=== PATIENT | male | born 1975 | race Caucasian/White ===

== ENCOUNTER 2016-06-16 19:01 | Emergency (ER) | payer OTHER ==
[~2016-06-16] VITALS: Ht 182.9 cm; Wt 91.9 kg
[~2016-06-16 19:01] MED LIST: HYDR-5688 PO; IMDSR30 PO; LSX20 PO
[2016-06-16 19:05] VITALS: TEMP 36.4; Ht 182.9 cm; Wt 91.9 kg
[2016-06-16] MEDS ORDERED: MoRPHine SULFATE 10 MG/ML CARP/VIAL IM STA (19:54)
--- NOTE | 2016-06-16 20:45 | DIAGNOSTIC IMAGING REPORT ---
LUMBAR SPINE 5 VIEWS HISTORY: Low back pain COMPARISON: Lumbar spine 07/09/2010. FINDINGS: There is no fracture. No subluxation. Mild disc space narrowing at L1-L2 and L5-S1 are not individually changed. There are small endplate osteophytes seen throughout the lumbar spine. Mild facet degenerative changes within the lower lumbar spine. There is a 7 mm calcification overlapping the left kidney. This could be due to a renal calculus or vascular calcification. IMPRESSION: No fracture or subluxation within the lumbar spine. Mild degenerative changes as described above Electronically signed by: David Zamora M.D. 06/16/2016 8:44 PM Dictated Date/Time: 06/16/2016 8:40 PM
[2016-06-16] MEDS ORDERED: HYDR-5688 PO (20:57)
[2016-06-16] MEDS ORDERED: NORCO 5/325MG HOME PACK PO STA (21:00)
--- NOTE | 2016-06-16 21:00 | EMERGENCY ROOM VISIT NOTE ---
ED Visit Note First contact with patient: 19:45 CHIEF COMPLAINT: Back pain going down the leg HISTORY OF PRESENT ILLNESS: This 41-year-old male patient presents to the emergency department via private vehicle who is not driving complaining of pain in the low back which began Monday. The pain was gradual in onset, is now constant and worse with movement. The patient notes the pain as radiating and worsening and a 9/10. The patient has taken Tylenol and ibuprofen relief of the pain. The patient denies any loss of control of their bowel or bladder functions. There has been no leg numbness or weakness, and no change in sensation. No nausea or vomiting or abdominal pain. No chest pain or shortness of breath. The patient has no had prior back injuries. No dysuria or increased urinary frequency. He denies any falls or trauma to the area. He notes that this pain is in the same location as his previous chronic back pain it is just worse. REVIEW OF SYSTEMS: A review of systems was performed with positives and pertinent negatives listed in the history of present illness. All other systems were reviewed and are negative. ALLERGIES: No known allergies MEDICATIONS: As noted below PMH: Diabetes, heart disease, high blood pressure, cancer, lung disease, gallbladder disease, kidney disease or stones, seizures". SOCIAL HISTORY: Patient lives with friends and denies alcohol or tobacco use. PHYSICAL EXAM: VITALS: Vitals are noted on the nurse's note and reviewed by myself. Vital signs stable. He does have elevated blood pressure of 155/105 and is tachycardic but notes that this blood pressure is better than his typical blood pressure. GENERAL: 41-year-old male, in no acute distress, nondiaphoretic, well-developed well-nourished. SKIN: The skin was without rashes, erythema, edema, or bruising. Capillary refill less than 2 seconds. NECK: Supple without nuchal rigidity. No cervical spine tenderness. No paraspinous muscle tenderness. HEART: Regular rate and rhythm without murmurs gallops or rubs. LUNGS: Clear to auscultation bilaterally without wheezes, rales or rhonchi. ABDOMEN: Positive bowel sounds x 4. Normal tympanic percussion. Soft, nontender, without masses or organomegaly. MUSCULOSKELETAL: No muscle atrophy, erythema, or edema noted of the back. There is noted tenderness over the lumbar spinous processes region as well as the paraspinous muscle trouble lumbar spine radiating into the legs. There is positive tenderness over the paraspinous muscles of the lumbar spine. There is no tenderness over the thoracic spine and paraspinous muscles. There are no muscle spasms present. The patient is ambulatory without difficulty. Positive straight leg raise test on the left. NEURO: Patient was alert and oriented to person place and time. Normal sensation to light and sharp touch. Deep tendon reflexes 2+ in the lower extremities. Vascularly intact in lower extremities. Strength 5/5 and equal in the bilateral lower extremities. IMAGING: LUMBAR SPINE 5 VIEWS HISTORY: Low back pain COMPARISON: Lumbar spine 07/09/2010. FINDINGS: There is no fracture. No subluxation. Mild disc space narrowing at L1-L2 and L5-S1 are not individually changed. There are small endplate osteophytes seen throughout the lumbar spine. Mild facet degenerative changes within the lower lumbar spine. There is a 7 mm calcification overlapping the left kidney. This could be due to a renal calculus or vascular calcification. IMPRESSION: No fracture or subluxation within the lumbar spine. Mild degenerative changes as described above Electronically signed by: David Zamora M.D. 06/16/2016 8:44 PM Dictated Date/Time: 06/16/2016 8:40 PM EMERGENCY DEPARTMENT COURSE: Patient was seen and evaluated as above. After obtaining a thorough history and physical examination it was evident he was experiencing an exacerbation of his chronic back pain. I did discuss with him treatment options and it was decided to obtain radiographs of the lumbar spine and to medicate him with 10 mg of morphine. I did discuss this with the in- house pharmacist to ensure that morphine would be okay with the Plavix. He was given 10 mg of morphine IM with good relief of his pain which rates as a 4/10. Radiographs were obtained and reveal degenerative changes with a small calcific region the left kidney. Patient was informed upon this. His vital signs were stable throughout his stay this back pain was consistent with his previous chronic back pain this was just an acute exacerbation. I do not suspect any emergent or surgical nature to his pain at this time. No evidence of cauda equina syndrome. He'll be placed upon Ashton with a small prescription sent home in a home pack for this evening as his pharmacy is closed. He was given the number for 3d specialist in informed to call them to follow up first thing tomorrow. He was educated upon plan of care, had questions answered prior to discharge and was discharged home in good condition. In the treatment of this patient controlled medication was utilized and therefore the [facility], Prescription Drug Monitoring Program website was utilized to look up this patient. No concerns were identified that would prohibit or alter my treatment decision. In evaluation treatment this patient following differential diagnoses were entertained: Acute exacerbation of chronic low back pain, cauda equina syndrome , AAA, trauma, among others. Problem List Medical Problems: (1) AC MYOCARDIAL INFARCT,SUBENDO INFARCT,INITIAL EPIS Status: Resolved (2) Acute bronchitis Status: Resolved (3) Benign hypertension Status: Chronic (4) CORONARY ATHEROSCLEROSIS OF [place] CORONARY VESSEL Status: Chronic (5) Diabetes mellitus Status: Chronic (6) Dyspnea Status: Resolved (7) Hyperlipidemia Status: Chronic (8) Non sustained V tach Status: Resolved (9) Non-ST elevated myocardial infarction Status: Resolved (10) Percutaneous transluminal coronary angioplasty Status: Resolved Surgical Problems: (1) History of cardiac cath Status: Resolved (2) History of heart artery stent Status: Resolved (3) Placement of stent in coronary artery Status: Resolved Current/Historical Medications Scheduled Aspirin (Aspirin Ec), 81 MG PO DAILY Atorvastatin (Lipitor), 80 MG PO DAILY Carvedilol (Coreg), 12.5 MG PO BID Clopidogrel (Plavix), 75 MG PO DAILY Furosemide (Furosemide), 20 MG PO QAM Isosorbide Mononitrate (Isosorbide Mononitrate ER), 30 MG PO QAM Lisinopril (Zestril), 5 MG PO DAILY Nitroglycerin (Nitrostat), 0.4 MG UT PRN Pantoprazole (Protonix), 40 MG PO BID Scheduled PRN Hydrocodone/Acetaminophen 5MG/325MG ([place] 5MG/325MG), 1 TABLET PO Q6 PRN for Pain Allergies Coded Allergies: No Known Allergies (Verified , 06/16/16) Vital Signs Date Time Temp Pulse Resp B/P Pulse Ox O2 Delivery O2 Flow Rate FiO2 06/16/16 21:23 80 154/92 98 06/16/16 19:05 36.4 108 18 155/105 96 Room Air Medications Administered Medications (Trade) Dose Ordered Sig/Alice Route Start Time Stop Time Status Last Admin Dose Admin Morphine Sulfate (MoRPHine SULFATE INJ) 10 mg NOW STAT IM 06/16/16 19:54 06/16/16 20:04 DC 06/16/16 20:09 10 MG Acetaminophen/ Hydrocodone Bitart ([place] 5/325mg Home Pack) 1 homepack UD STAT PO 06/16/16 21:00 06/16/16 21:01 DC 06/16/16 21:04 1 HOMEPACK Departure Information Impression Primary Impression: Low back pain Dispostion Home / Self-Care Condition GOOD Prescriptions Hydrocodone/Acetaminophen 5MG/325MG ([place] 5MG/325MG) Tab 1 TABLET PO Q6 Y for Pain, #10 TAB For Initial Treatment Prov: Cy Moody PA-C 06/16/16 Referrals Chinmay Brown, D.ONarendra (PCP) Patient Instructions My [facility] Additional Instructions You have been treated in the Emergency Department for Back Pain. You have received pain medicine in the emergency department which impairs your ability to operate a vehicle. It is illegal for you to drive after receiving these medicines. You have been prescribed Ashton to be used for pain control. This is a narcotic medication. You cannot drive or consume alcohol while on this medicine. This medicine should only be used for pain that cannot be controlled with over-the- counter pain medicines. DO NOT TAKE TYLENOL WITH THIS IT ALREADY HAS TYLENOL IN IT!!!!!! If this is an acute injury, ice can be applied to the area of pain for the first 3 days to help decrease pain and inflammation. After the first 3 days, a heating pad can be used over the area for continued soothing relief. You should schedule a follow-up appointment in 2-3 days with your Primary Care Provider for further evaluation and treatment of your back pain. You have been given the number for an orthopedic 3d specialist. Please call the number first thing tomorrow morning to schedule follow-up for your back pain. (Dr. Wang) Return to the Emergency Department if your current symptoms worsen despite treatment course outlined above, or if you develop any of the following symptoms : intractable pain despite aforementioned treatment course, loss of control of your bowel or bladder, numbness or tingling in your groin, or development of a fever... Please return to the emergency department with any new/concerning symptoms from your standpoint. Problem Qualifiers Primary Impression: Low back pain Chronicity: chronic Back pain laterality: bilateral
[2016-06-16 21:23] VITALS: BP 154/92; PULSE 80; O2SAT 98
[2016-06-23] MEDS ORDERED: ASPI81TA28 PO (03:13)
[2016-06-23] MEDS ORDERED: ATOR-26 PO (03:13)
[2016-06-23] MEDS ORDERED: CARV12.52 PO (03:15)
[2016-06-23] MEDS ORDERED: CLOP1TAB15 PO (03:16)
[2016-06-23] MEDS ORDERED: LISI-729 PO (03:16)
[2016-06-23] MEDS ORDERED: PANT40TA PO (03:18)
[2016-06-23] MEDS ORDERED: NTRGSL/4 UT (03:19)
[2016-06-25] MEDS ORDERED: LNX125 PO (14:45)
[2016-06-25] MEDS ORDERED: CRG25 PO (14:45)
[2016-06-25] MEDS ORDERED: ELQ25 PO (14:45)
== END 2016-06-16 21:04 | disposition home or self-care (01) ==
LOC: C.EDB 19:05 → C.EDD 21:04
DX: M54.5 Low back pain (principal); E11.9 Type 2 diabetes mellitus without complications; I10 Essential (primary) hypertension; R56.9 Unspecified convulsions; I25.2 Old myocardial infarction; I25.10 Atherosclerotic heart disease of native coronary artery without angina pectoris; E78.5 Hyperlipidemia, unspecified; Z95.5 Presence of coronary angioplasty implant and graft; Z79.82 Long term (current) use of aspirin

== ENCOUNTER 2016-06-23 14:32 | Observation (INO) | payer OTHER ==
[~2016-06-23] VITALS: Ht 182.9 cm; Wt 91.2 kg
[~2016-06-23 14:32] MED LIST changes: +ASPI81TA28 PO; +ATOR-26 PO; +CARV12.52 PO; +CLOP1TAB15 PO; +LISI-729 PO; +NTRGSL/4 UT; +PANT40TA PO
[2016-06-23 15:08] LABS: HEMATOCRIT 43.6 % (42-52); MEAN CELL VOLUME 91.4 fL (80-100); MEAN CORPUSCULAR HEMOGLOBIN 32.1 pg (25-34); MEAN CORPUSCULAR HGB CONC 35.1 g/dl (32-36); MEAN PLATELET VOLUME 10.9 fL (7.4-10.4); PLATELET COUNT 295 K/uL (130-400); RED BLOOD COUNT 4.77 M/uL (4.7-6.1); WHITE BLOOD COUNT 8.94 K/uL (4.8-10.8)
[2016-06-23] MEDS ORDERED: NITROGLYCERIN OINT 2% 1GM PACKET ONE (15:09)
[2016-06-23] MEDS ORDERED: NITROGLYCERIN OINT 2% 1GM PACKET EXT STA (15:09)
[2016-06-23] MEDS ORDERED: ASPIRIN 81 MG CHEW ONE (15:09)
[2016-06-23] MEDS ORDERED: ASPIRIN 81 MG CHEW PO STA (15:09)
[2016-06-23] MEDS ORDERED: ISOS30TA3 PO (15:17)
[2016-06-23] MEDS ORDERED: FURO-85 PO (15:17)
--- NOTE | 2016-06-23 15:21 | EMERGENCY ROOM VISIT NOTE ---
History Report prepared by George: Maxine Gavrin Under the Supervision of: Dr. Td Anne M.D. First contact with patient: 15:01 Chief Complaint: CHEST PAIN Stated Complaint: CP, SOB Nursing Triage Summary: patient with cardiac history with stents placed and past MO with 3 day history of chest pain which has been relieved with NTG SL. came today with increased shortness of breath with the pain in the chest pressure substernal History of Present Illness The patient is a 41 year old male who presents to the Emergency Room with complaints of waxing and waning left sided chest pain that began three days ago. The pain radiates through his back and left arm. He also complains of shortness of breath that worsens with his chest pain. His symptoms are typically the worst at night when he his relaxing. The patient took Nitro SL ADULT SPECIALIST with some relief of his pain. Currently, he has minimal pain. He does complain of some substernal pain that feels similar to the pain he had when he had a CHF flare up. He notes that he was checking his pulse ox at home and it went as low as 79 last night. The patient has a history of MO and has had multiple stents placed in the past. His most recent stent placement was about a year ago. His current symptoms feel similar to how he felt when he had the stents placed. The patient also has a history of CHF. Source of History: patient Onset: 3 days ago Position: chest (left) Timing: waxes/wanes Modifying Factors (Relieving): other (Nitro) Associated Symptoms: + SOB Note: Other symptoms: substernal pain Review of Systems See HPI for pertinent positives & negatives. A total of 10 systems reviewed and were otherwise negative. Past Medical & Surgical Medical Problems: (1) AC MYOCARDIAL INFARCT,SUBENDO INFARCT,INITIAL EPIS (2) ACS (acute coronary syndrome) (3) Acute bronchitis (4) Benign hypertension (5) CHF exacerbation (6) CORONARY ATHEROSCLEROSIS OF [place] CORONARY VESSEL (7) Diabetes mellitus (8) Dyspnea (9) Hyperlipidemia (10) Non sustained V tach (11) Non-ST elevated myocardial infarction (12) Percutaneous transluminal coronary angioplasty Surgical Problems: (1) History of cardiac cath (2) History of heart artery stent (3) Placement of stent in coronary artery Family History Blood clots Cancer Diabetes mellitus Gallbladder disease Heart disease Hypertension Kidney disease Kidney stones Lung disease Social History Smoking Status: Former Smoker Alcohol Use: occasionally Drug Use: none Marital Status: in relationship Housing Status: lives with family Occupation Status: employed Current/Historical Medications Scheduled Aspirin (Aspirin Ec), 81 MG PO DAILY Atorvastatin (Lipitor), 80 MG PO DAILY Carvedilol (Coreg), 12.5 MG PO BID Clopidogrel (Plavix), 75 MG PO DAILY Isosorbide Mononitrate Ext Rel (Imdur Ext Rel), 30 MG PO QAM Lisinopril (Zestril), 5 MG PO DAILY Pantoprazole (Protonix), 40 MG PO DAILY Torsemide (Torsemide), 20 MG PO DAILY Scheduled PRN Nitroglycerin (Nitrostat), 0.4 MG UT UD PRN for Chest Pain Allergies Coded Allergies: No Known Allergies (Verified , 06/16/16) Physical Exam Vital Signs Date Time Temp Pulse Resp B/P Pulse Ox O2 Delivery O2 Flow Rate FiO2 06/23/16 16:55 108 16 144/95 97 06/23/16 16:51 108 16 144/95 97 Room Air 06/23/16 15:50 109 06/23/16 15:05 99 Room Air 06/23/16 14:58 99 Room Air 06/23/16 14:58 107 20 155/97 99 Room Air 06/23/16 14:38 36.3 110 20 157/108 98 Room Air Physical Exam GENERAL: Patient is a healthy-appearing well-nourished 41 year old male HEAD: Normocephalic atraumatic EYES: Ocular movements intact pupils equal and react to light OROPHARYNX mucous membranes are moist no exudates present no erythema or edema present NECK: Supple no nuchal rigidity CHEST: Good equal expansion LUNGS: Clear and equal to auscultation CARDIAC: Normal S1 and S2 ABDOMEN: Soft nontender no guarding BACK: No CVA tenderness EXTREMITIES: No pain upon palpation normal muscle strength in all groups no clubbing cyanosis or edema NEURO: Patient is following commands is answering questions appropriately. Alert and oriented x3 Cranial Nerves 2-12 grossly intact Medical Decision & Procedures ER Provider Diagnostic Interpretation: X-ray results as stated below per interpretation by me and the radiologist: CHEST ONE VIEW PORTABLE CLINICAL HISTORY: CHEST PAIN dyspnea COMPARISON STUDY: 02/27/2016 FINDINGS: The bones soft tissues and hemidiaphragms are normal. The cardiomediastinal silhouette is normal. The lungs are clear. The pulmonary vasculature is normal. Old healed fracture right clavicle IMPRESSION: Negative chest. Electronically signed by: Montez Powell M.D. 06/23/2016 3:29 PM Dictated Date/Time: 06/23/2016 3:29 PM Laboratory Results 06/23/16 14:55 06/23/16 14:55 Test 06/23/16 14:55 06/23/16 15:03 06/23/16 17:11 Red Blood Count 4.77 M/uL (4.7-6.1) Mean Corpuscular Volume 91.4 fL (80-100) Mean Corpuscular Hemoglobin 32.1 pg (25-34) Mean Corpuscular Hemoglobin Concent 35.1 g/dl (32-36) RDW Standard Deviation 44.1 fL (36.4-46.3) RDW Coefficient of Variation 13.5 % (11.5-14.5) Mean Platelet Volume 10.9 fL (7.4-10.4) Prothrombin Time 11.0 SECONDS (9.0-12.0) Prothromb Time International Ratio 1.0 (0.9-1.1) Activated Partial Thromboplast Time 25.3 SECONDS (21.0-31.0) Partial Thromboplastin Ratio 1.0 Anion Gap 7.0 mmol/L (3-11) Est Creatinine Clear Calc Drug Dose 95.1 ml/min Estimated GFR () 94.8 Estimated GFR (Non- 81.8 BUN/Creatinine Ratio 7.5 (10-20) Calcium Level 8.4 mg/dl (8.5-10.1) Magnesium Level 2.0 mg/dl (1.8-2.4) Total Bilirubin 0.3 mg/dl (0.2-1) Aspartate Amino Transf (AST/SGOT) 11 U/L (15-37) Alanine Aminotransferase (ALT/SGPT) 18 U/L (12-78) Alkaline Phosphatase 65 U/L (45-117) Total Creatine Kinase 137 U/L (39-308) Creatine Kinase MB 1.2 ng/ml (0.5-3.6) Creatine Kinase MB Ratio 0.9 (0-3.0) Total Protein 6.9 gm/dl (6.4-8.2) Albumin 3.9 gm/dl (3.4-5.0) Globulin 3.0 gm/dl (2.5-4.0) Albumin/Globulin Ratio 1.3 (0.9-2) Bedside Troponin I 0.030 ng/ml (0-0.045) Labs reviewed by ED physician. Medications Administered Medications (Trade) Dose Ordered Sig/Alice Route Start Time Stop Time Status Last Admin Dose Admin Aspirin (Aspirin Chew) 324 mg STK-MED ONCE .ROUTE 06/23/16 15:09 06/23/16 15:11 DC 06/23/16 15:13 324 MG Nitroglycerin (Nitroglycerin 2% Oint) 1 inch STK-MED ONCE .ROUTE 06/23/16 15:09 06/23/16 15:11 DC 06/23/16 15:09 1 INCH Miscellaneous Medication (Gi Cocktail) 24 ml NOW STAT PO 06/23/16 15:22 06/23/16 15:23 DC 06/23/16 15:22 24 ML Famotidine (Pepcid Tab) 20 mg NOW STAT PO 06/23/16 15:22 06/23/16 15:23 DC 06/23/16 15:52 20 MG Sucralfate (Carafate Tab) 1 gm NOW STAT PO 06/23/16 15:22 06/23/16 15:23 DC 06/23/16 15:52 1 GM Al Hydroxide/Mg Hydroxide (Maalox Susp) 30 ml STK-MED ONCE .ROUTE 06/23/16 15:49 06/23/16 15:51 DC 06/23/16 15:53 30 ML Lidocaine HCl (Viscous Lidocaine 2% Soln) 20 ml STK-MED ONCE .ROUTE 06/23/16 15:49 06/23/16 15:51 DC 06/23/16 15:53 20 ML Morphine Sulfate (MoRPHine SULFATE INJ) 2 mg NOW STAT IV 06/23/16 17:07 06/23/16 17:10 DC 06/23/16 17:12 2 MG ECG Indication: chest pain Rate (beats per minute): 114 Rhythm: sinus tachycardia Findings: RBBB, no acute ischemic change, no ectopy ED Course 1512: Past medical records reviewed. The patient was evaluated in room B4. A complete history and physical examination was performed. Ordered nitroglycerin 1 inch EXT, Aspirin 324 mg PO 1522: Ordered Sucralfate 1 gm PO, Famotidine 20 mg PO, GI Cocktail 24 ml PO. 1554: I discussed the case with [facility]. 1600: Upon reexamination the patient is resting comfortably. I discussed results and treatment plan with the patient. He verbalizes agreement and understanding. Medical Decision Differential diagnosis: Etiologies such as cardiac ischemia, aortic dissection, pulmonary embolism, pneumonia, pneumothorax, musculoskeletal, infections, pericarditis, myocarditis , esophageal rupture, gastrointestinal, as well as others were entertained. This is a 41-year-old male who presents emergency department complaining of chest pain. The patient does have a significant history of cardiac stents. I will also note that his troponin was not quite 0. The patient's pain was relieved by nitroglycerin over the past 3 days however keeps coming back with increasing frequency. For this reason he was given nitro paste in the emergency department along with 324 mg of aspirin. I did discuss the patient with the hospitalist service who agreed to admit the patient. Patient was in agreement with the treatment plan. Consults Time Called: 1550 Consulting Physician: [facility] Returned Call: 1554 I discussed the case with her. The patient will be evaluated for further management. Impression Primary Impression: Unstable angina Scribe Attestation The scribe's documentation has been prepared under my direction and personally reviewed by me in its entirety. I confirm that the note above accurately reflects all work, treatment, procedures, and medical decision making performed by me. Departure Information Dispostion Being Evaluated By Hospitalist Referrals Chinmay Brown, ChristianONarendra (PCP) Patient Instructions My [facility]
[2016-06-23] MEDS ORDERED: SUCRALFATE 1 GM TAB PO STA (15:22)
[2016-06-23] MEDS ORDERED: FAMOTIDINE 20 MG TAB PO STA (15:22)
[2016-06-23] MEDS ORDERED: GI COCKTAIL PO STA (15:22)
[2016-06-23 15:26] LABS: BUN/CREATININE RATIO 7.5 (10-20); CALCIUM 8.4 mg/dl (8.5-10.1); CREATININE 1.1 mg/dl (0.60-1.40); POTASSIUM 3.5 mmol/L (3.5-5.1)
--- NOTE | 2016-06-23 15:30 | DIAGNOSTIC IMAGING REPORT ---
CHEST ONE VIEW PORTABLE CLINICAL HISTORY: CHEST PAIN dyspnea COMPARISON STUDY: 02/27/2016 FINDINGS: The bones soft tissues and hemidiaphragms are normal. The cardiomediastinal silhouette is normal. The lungs are clear. The pulmonary vasculature is normal. Old healed fracture right clavicle IMPRESSION: Negative chest. Electronically signed by: Montez Powell M.D. 06/23/2016 3:29 PM Dictated Date/Time: 06/23/2016 3:29 PM
[2016-06-23 15:31] LABS: ALB/GLOB RATIO 1.3 (0.9-2); CKMB/CK RATIO 0.9 (0-3.0)
[2016-06-23] MEDS ORDERED: ALUMINUM/MAGNESIUM SUSP 30 ML UDC ONE (15:49)
[2016-06-23] MEDS ORDERED: LIDOCAINE HCL 2% VISC SOLN 20 ML UDC ONE (15:49)
[2016-06-23] MEDS ORDERED: ONDANSETRON INJ 2 MG/ML 2 ML VIAL IV PRN (16:15)
[2016-06-23] MEDS ORDERED: NITROGLYCERIN 0.4 MG SL PER TAB CHARGE SL PRN (16:15)
[2016-06-23] MEDS ORDERED: IV FLUIDS COMPLETED PRN (16:30)
[2016-06-23] MEDS ORDERED: MoRPHine SULFATE 2 MG/ML CARP IV STA (17:07)
[2016-06-23] MEDS ORDERED: DMD20 PO (17:09)
[2016-06-23] MEDS ORDERED: CARVEDILOL 12.5 MG TAB PO ONE (17:30)
--- NOTE | 2016-06-23 17:39 | History and Physical ---
History & Physical Date & Time of Service: Jun 23, 2016 at 17:24 Chief Complaint: Cp, Sob Primary Care Physician: Chinmay Brown D.ONarendra History of Present Illness Source: patient, clinic records, hospital records Patient seen and examined. 41 year old male with PMHx of CAD s/p Stenting, HTN, HLD, Systolic CHF, and other problems listed below presents to the ED complaining of chest pain x 3 days. Patient reports that he usually gets chest tightness when exerting himself outside in the cold. Over the last three days he has started to have chest pain at rest. He states this happens mostly at night. He reports that pain starts substernal radiates to the left shoulder and back. He describes the pain as a tightness/pressure with a sharp quality. He rates it as a 10/10. He reports associated SOB, diaphoresis. He states he chronically feels palpitations. He states he has been taking nitro SL which alleviates the symptoms. He states last night the pain was worse and he had to take 2 nitro SL to alleviate the pain. He reports last night he had PND. He denies fevers, chills, URI symptoms, nausea, vomiting, diarrhea, dysuria, edema. He reports left calf pain. He reports he has been compliant with his medications. He states he quit smoking in March after several years of 1pack per day. He reports he was to have a stress test in March but was not able to make the appointment. Patient has had 4 cardiac stents placed in the past last one in 2014. He had a LHC in February 2016 which showed patent stents, severe CAD and medical management was recommended at that time. He follows with Dr. Rodriguez. In the ED patient is mildly tachycardic otherwise VS are stable, Diana are negative x 1, EKG is nonischemic. He is given nitropaste and ASA and pain is improving. He will be observed for further workup and treatment. Past Medical/Surgical History Medical Problems: (1) Aortic regurgitation Status: Chronic (2) CAD (coronary artery disease) Status: Chronic (3) CHF (congestive heart failure) Status: Chronic (4) DVT (deep venous thrombosis) Status: Chronic (5) MATTHEW (generalized anxiety disorder) Status: Chronic (6) History of left heart catheterization (LHC) Status: Chronic (7) HLD (hyperlipidemia) Status: Chronic (8) HTN (hypertension) Status: Chronic (9) Non-ST elevated myocardial infarction Status: Resolved (10) Tobacco abuse Status: Chronic Surgical Problems: (1) History of cardiac cath Status: Resolved (2) History of esophagogastroduodenoscopy (EGD) Status: Chronic (3) History of heart artery stent Status: Resolved (4) Placement of stent in coronary artery Status: Resolved (5) Stented coronary artery Status: Chronic Family History Blood clots Cancer Diabetes mellitus Gallbladder disease Heart disease Hypertension Kidney disease Kidney stones Lung disease Social History Smoking Status: Former Smoker Alcohol Use: none Drug Use: none Marital Status: in relationship Housing status: lives with friends Occupational Status: employed Immunizations History of Influenza Vaccine: No History of Tetanus Vaccine?: Yes History of Pneumococcal: No History of Hepatitis B Vaccine: No Multi-Drug Resistant Organisms History of MDRO: No Allergies Coded Allergies: No Known Allergies (Verified , 06/16/16) Home Medications Scheduled Aspirin (Aspirin Ec), 81 MG PO DAILY Atorvastatin (Lipitor), 80 MG PO DAILY Carvedilol (Coreg), 12.5 MG PO BID Clopidogrel (Plavix), 75 MG PO DAILY Isosorbide Mononitrate Ext Rel (Imdur Ext Rel), 30 MG PO QAM Lisinopril (Zestril), 5 MG PO DAILY Pantoprazole (Protonix), 40 MG PO DAILY Torsemide (Torsemide), 20 MG PO DAILY Scheduled PRN Nitroglycerin (Nitrostat), 0.4 MG UT UD PRN for Chest Pain Review of Systems See above for pertinent positives & negatives. A total of 10 systems reviewed and were otherwise negative. Physical Exam Vital Signs Date Time Temp Pulse Resp B/P Pulse Ox O2 Delivery O2 Flow Rate FiO2 06/23/16 16:55 108 16 144/95 97 06/23/16 16:51 108 16 144/95 97 Room Air 06/23/16 15:50 109 06/23/16 15:05 99 Room Air 06/23/16 14:58 99 Room Air 06/23/16 14:58 107 20 155/97 99 Room Air 06/23/16 14:38 36.3 110 20 157/108 98 Room Air General Appearance: + pertinent finding (Pleasant WD/WN 41 year old male lying in bed in NAD ) Head: normocephalic, atraumatic Eyes: PERRL, EOMI, sclerae normal ENT: hearing grossly normal, pharynx normal Neck: supple, no JVD Respiratory/Chest: chest non-tender, lungs clear, normal breath sounds, no respiratory distress, no accessory muscle use Cardiovascular: no edema, no gallop, no JVD, normal peripheral pulses, + tachycardia (110s regular ), + systolic murmur (+3) Abdomen/GI: normal bowel sounds, soft, + tenderness (epigastric ) Back: normal inspection, no muscle spasm Extremities/Musculoskelatal: normal capillary refill, no pedal edema, + calf tenderness (left ) Neurologic/Psych: alert, oriented x 3, + pertinent finding (no motor or sensory deficits noted on gross exam ) Skin: normal color, warm/dry, no rash Lymphatic: no adenopathy Diagnostics Laboratory Results Results Past 24 Hours Test 06/23/16 14:55 06/23/16 15:03 Range/Units White Blood Count 8.94 4.8-10.8 K/uL Red Blood Count 4.77 4.7-6.1 M/uL Hemoglobin 15.3 14.0-18.0 g/dL Hematocrit 43.6 42-52 % Mean Corpuscular Volume 91.4 80-100 fL Mean Corpuscular Hemoglobin 32.1 25-34 pg Mean Corpuscular Hemoglobin Concent 35.1 32-36 g/dl RDW Standard Deviation 44.1 36.4-46.3 fL RDW Coefficient of Variation 13.5 11.5-14.5 % Platelet Count 295 130-400 K/uL Mean Platelet Volume 10.9 7.4-10.4 fL Prothrombin Time 11.0 9.0-12.0 SECONDS Prothromb Time International Ratio 1.0 0.9-1.1 Activated Partial Thromboplast Time 25.3 21.0-31.0 SECONDS Partial Thromboplastin Ratio 1.0 Sodium Level 142 136-145 mmol/L Potassium Level 3.5 3.5-5.1 mmol/L Chloride Level 111 98-107 mmol/L Carbon Dioxide Level 24 21-32 mmol/L Anion Gap 7.0 3-11 mmol/L Blood Urea Nitrogen 8 7-18 mg/dl Creatinine 1.10 0.60-1.40 mg/dl Est Creatinine Clear Calc Drug Dose 95.1 ml/min Estimated GFR () 94.8 Estimated GFR (Non- 81.8 BUN/Creatinine Ratio 7.5 10-20 Random Glucose 122 70-99 mg/dl Calcium Level 8.4 8.5-10.1 mg/dl Magnesium Level 2.0 1.8-2.4 mg/dl Total Bilirubin 0.3 0.2-1 mg/dl Aspartate Amino Transf (AST/SGOT) 11 15-37 U/L Alanine Aminotransferase (ALT/SGPT) 18 12-78 U/L Alkaline Phosphatase 65 45-117 U/L Total Creatine Kinase 137 39-308 U/L Creatine Kinase MB 1.2 0.5-3.6 ng/ml Creatine Kinase MB Ratio 0.9 0-3.0 Total Protein 6.9 6.4-8.2 gm/dl Albumin 3.9 3.4-5.0 gm/dl Globulin 3.0 2.5-4.0 gm/dl Albumin/Globulin Ratio 1.3 0.9-2 Bedside Troponin I 0.030 0-0.045 ng/ml Diagnostic Radiology CXR Per radiologist read: IMPRESSION: Negative chest. EKG Sinus Tachycardia 114BPM, RBBB QTc 504 Impression Assessment and Plan 41 year old male with severe premature CAD presents to the ED complaining of 3 days of chest pain at rest. ED workup is essentially negative CHEST PAIN R/O ACS - known CAD -Observation in tele -First set of Diana negative in ED -Risk factors: Known CAD h/o stenting to RCA x2, and LAD x 2, HTN, HLD, tobacco abuse - recent cessation, family history -Serial Diana and EKGs -Fasting lipid panel, A1c in AM -Echo pending to r/o heart wall abnormality -continue Nitropaste -Add morphine prn chest pain - [place] prescription monitoring program reviewed -Continue ACEI, ASA, Plavix, Statin -Increase Carvedilol to 25mg BID as patient is still tachycardic -hold Imdur while on nitropaste -Cardiology consult placed for further recommendations - follows with Dr. Rodriguez as outpatient -[facility] diet npo aftermidnight -CBC, PRP, Mg daily -VSS stable, monitor in tele LEFT CALF PAIN -r/o DVT, reports history of DVT -doppler US pending EPIGASTRIC PAIN -r/o pancreatitis -check Lipase GERD -continue PPI SYSTOLIC CHF -stable -last echo with EF of 40-45%, aortic regurgitation -appears euvolemic -Continue Torsemide -repeat Echo HTN -stable -continue BB, ACEI -monitor in tele HLD -continue Statin DVT PROPHYLAXIS: Sq Lovenox CODE STATUS: FULL CODE DISPO:observation pending further workup Patient seen in collaboration with Dr. Garcia ATTENDING ADDENDUM Record reviewed. Patient interviewed and examined. Care coordinated with Jessica Earl PA-C. Please refer to her documentation for patient's history. 41 yoM with h/o CAD who presents with CP, SOB associated with diaphoresis and palpitations for the past 3 days with the pain radiating into the L shoulder and back. He also had some L calf pain and with h/o DVT several years ago, an US was ordered and was + for an acute left calf DVT. Therapeutic Lovenox was ordered, but long-term anticoagulation was deferred to am team as it is too late tonight to have that discussion with him. CT PE was ordered in setting of new clot with symptoms of CP and SOB. Pt was not hypoxic but does have tachycardia. This is pending but therapy for the clot has already started. I have otherwise discussed the case with the provider above and agree with the assessment and plan as stated. Of note, lipase was negative and I did not appreciate epigastric pain on my exam. His exam revealed a tachycardic patient who was alert and appropriate and without distress. Heart and lung exam was normal aside from the tachycardia. No calf tenderness and no LE swelling on exam. A Cards consult was ordered for recurring chest pain in the setting of h/ o significant early onset CAD. Cont plan as above and monitor on telemetry. Deborah Garcia DO (Hospitalist) Level of Care Telemetry Resuscitation Status FULL RESUSCITATION VTE Prophylaxis VTE Risk Assessment Done? Y/N: Yes Risk Level: Moderate Given or contraindicated: Enoxaparin (Lovenox)SQ
[2016-06-23 17:42] VITALS: BP 153/97; PULSE 100; TEMP 36.3; O2SAT 96; Ht 182.9 cm; Wt 91.2 kg
[2016-06-23] MEDS: MoRPHine SULFATE 2 MG/ML CARP IV PRN (19:39)
[2016-06-23 19:59] VITALS: BP 126/76; PULSE 100; TEMP 36.3; O2SAT 96
[2016-06-23] MEDS ORDERED: ENOXAPARIN 40 MG/0.4 ML SYR SC SCH (20:00)
[2016-06-23] MEDS: CARVEDILOL 25 MG TAB PO SCH ×2 (20:21→20:23)
[2016-06-23] MEDS: NITROGLYCERIN OINT 2% 1GM PACKET EXT SCH (20:21)
[2016-06-23] MEDS ORDERED: CARVEDILOL 12.5 MG TAB PO SCH (21:00)
[2016-06-23 21:43] LABS: CKMB/CK RATIO 1.2 (0-3.0)
--- NOTE | 2016-06-23 22:24 | DIAGNOSTIC IMAGING REPORT ---
ULTRASOUND BILATERAL LOWER EXTREMITY VENOUS CLINICAL HISTORY: Calf pain. COMPARISON STUDY: Bilateral lower extremity ultrasound dated 04/16/2015. TECHNIQUE: Real-time, grayscale, and color Doppler sonography of the deep veins of the right and left lower extremity was performed from the inguinal crease to the calf. Compression and augmentation were utilized. FINDINGS: Right lower extremity: There is no sonographic evidence of deep venous thrombosis identified in the right lower extremity. The common femoral, superficial femoral, and popliteal veins are patent and normally compressible. The greater saphenous vein and the profunda femoris vein at the junction with the common femoral vein are clear. The visualized calf veins are patent. Left lower extremity: There is deep venous thrombosis identified in the left calf within 1 of the peroneal veins. The remaining calf vessels are patent. There is no sonographic evidence of above knee deep venous thrombosis identified in the left lower extremity. The common femoral, superficial femoral, and popliteal veins are patent and normally compressible. The greater saphenous vein and the profunda femoris vein at the junction with the common femoral vein are clear. IMPRESSION: 1. There is no sonographic evidence of deep venous thrombosis identified in the right lower extremity. 2. There is deep venous thrombosis identified in the left calf within one of the peroneal veins. 3. No above knee deep venous thrombosis is seen in the left lower extremity. Electronically signed by: Glenn Suarez M.D. 06/23/2016 10:23 PM Dictated Date/Time: 06/23/2016 10:21 PM
[2016-06-23] MEDS ORDERED: ENOXAPARIN 1 MG/KG SQ SCH (22:45)
[2016-06-23] MEDS ORDERED: MoRPHine SULFATE 4 MG/ML 1 ML CARP\\VIAL ONE (22:59)
[2016-06-23] MEDS ORDERED: NURSING VERBAL MED ORDER ONE (23:00)
[2016-06-23] MEDS ORDERED: OPTIRAY 320 IV PRN (23:00)
[2016-06-23] MEDS: ENOXAPARIN 100 MG/1ML SYR SQ SCH (23:06)
[2016-06-23] MEDS ORDERED: MoRPHine SULFATE 4 MG/ML 1 ML CARP\\VIAL IV STA (23:08)
[2016-06-23 23:20] VITALS: BP 127/85; PULSE 99; TEMP 36.2; O2SAT 95
[2016-06-24] VITALS (7 sets, daily range): BP systolic 96–108; BP diastolic 59–71; PULSE 86–97; TEMP 36.4–37.4; O2SAT 91–96
[2016-06-24 03:19] LABS: HEMATOCRIT 39.1 % (42-52); MEAN CELL VOLUME 91.8 fL (80-100); MEAN CORPUSCULAR HEMOGLOBIN 31.9 pg (25-34); MEAN CORPUSCULAR HGB CONC 34.8 g/dl (32-36); MEAN PLATELET VOLUME 10.9 fL (7.4-10.4); PLATELET COUNT 264 K/uL (130-400); RED BLOOD COUNT 4.26 M/uL (4.7-6.1); WHITE BLOOD COUNT 8.14 K/uL (4.8-10.8)
[2016-06-24] MEDS: NITROGLYCERIN OINT 2% 1GM PACKET EXT SCH ×4 (03:26→21:43)
[2016-06-24] MEDS: MoRPHine SULFATE 2 MG/ML CARP IV PRN ×7 (03:27→20:55)
[2016-06-24 03:43] LABS: CALCIUM 8.1 mg/dl (8.5-10.1); CREATININE 0.97 mg/dl (0.60-1.40)
[2016-06-24 03:48] LABS: CHOLESTEROL/HDL RATIO 8.1; CKMB/CK RATIO 1.4 (0-3.0)
[2016-06-24 06:33] LABS: ESTIMATED AVERAGE GLUCOSE 143 mg/dl; HA1C FLAG Normal (Normal)
--- NOTE | 2016-06-24 06:41 | DIAGNOSTIC IMAGING REPORT ---
CHEST CTA for PULMONARY ARTERIES CT DOSE: 507.03 mGycm HISTORY: Chest pain dyspnea TECHNIQUE: Multiaxial CT images of the chest were performed following the intravenous administration of contrast to evaluate the pulmonary arteries. Maximal intensity projection images were also obtained. COMPARISON STUDY: 02/25/2016 FINDINGS: There is a normal caliber thoracic aorta with no evidence for dissection. There is no evidence for pulmonary embolus. No pleural effusions. No pneumothorax. The liver and spleen are unremarkable. No mediastinal or hilar lymphadenopathy. The central airways are patent. The lungs are clear. Minimal dependent bibasilar atelectasis IMPRESSION: No evidence for pulmonary embolus. Electronically signed by: Montez Powell M.D. 06/24/2016 6:39 AM Dictated Date/Time: 06/24/2016 6:38 AM
[2016-06-24] MEDS: ATORVASTATIN 40 MG TAB PO SCH (08:01)
[2016-06-24] MEDS: ASPIRIN 81 MG ECTAB PO SCH (08:01)
[2016-06-24] MEDS: LISINOPRIL 5 MG TAB PO SCH (08:02)
[2016-06-24] MEDS: PANTOprazole SOD 40 MG TAB PO SCH (08:02)
[2016-06-24] MEDS: TORSEMIDE 20 MG TAB PO SCH (08:02)
[2016-06-24] MEDS: CARVEDILOL 25 MG TAB PO SCH ×2 (08:02→20:54)
[2016-06-24] MEDS: CLOPIDOGREL BISULFATE 75 MG TAB PO SCH (08:02)
[2016-06-24] MEDS: ENOXAPARIN 100 MG/1ML SYR SQ SCH (10:21)
--- NOTE | 2016-06-24 10:59 | Cardiology Consultation ---
Cardiology Consultation Date of Consultation: Jun 24, 2016 Requesting Physician: Phyllis Attending Sales Representative [employer]: Joseph (Montez Quispe PA-C) History of Present Illness Mr. Daniel Romeo is a 41 year old male who is being seen at the request of Dr. Garcia. Reason(s) for consultation include chest pain, CAD, tobacco abuse. Mr. Romeo describes three days of constant dull substernal/epigastric chest discomfort that is worse when he lays down, radiating to the left shoulder and mid back, associated with diaphoresis, shortness of breath, orthopnea, and PND. He notes symptoms are unlike his prior angina and that they are consistent with past issues of volume overload. He notes taking sublingual nitroglycerin with transient improvement in the discomfort. Additional complaints include chronic fatigue, exertional chest tightness aggravated by the cold temperatures, increased exertional dyspnea, chronic tachypalpitations, mild bilateral lower extremity edema, and chronic mild discomfort in the left calf. He was given ASA and nitro paste in the ER with improvement. Cardiac enzymes negative x 3. EKG's without acute changes. Admission CXR was interpreted as a negative chest as per Dr. Powell. Chest CT showed no evidence of PE. Venous duplex showed a left peroneal vein DVT as did a duplex on 04/16/2015. (Montez Quispe PA-C) History Past Medical/Surgical History: Aggressive premature coronary heart disease as detailed below. Ischemic cardiomyopathy, EF 40-45% Ischemic mitral regurgitation May 2012 NSTEMI, status post PCI of the mid and distal RCA with bare metal stents. June 2012 NSTEMI, catheterization demonstrating 30% in stent restenoses of both stents and branch vessel disease. Patient felt to have micro plaque rupture , treated medically. June 2014 anterolateral STEMI, new high-grade stenosis in the mid LAD as well as a diagonal branch for which he underwent PCI with implantation of a bare metal stent to the mid LAD. The diagonal stenosis was a branch that supplied a fair amount of territory to the anterolateral wall, but was not amenable to PCI and was therefore managed medically. EGD in June 2014 revealed a Moira-Geiger tear which was clipped. Presentation in January 2015 with unstable angina, status post PCI of the LCX with a BMS Admission to [facility] in February 2016 with unstable angina and symptoms suggestive of heart failure. Coronary angiography on 03/02/2016 revealed severe diffuse coronary atherosclerosis. There were patent stents within the LAD, mid RCA, and distal PLV. He was found to have a chronic occlusion of a large second diagonal branch and a new occlusion of the proximal circumflex proximal to the previously placed stents. There was severe hypokinesis to akinesis of the inferior wall with moderate LV systolic dysfunction and moderately severe mitral regurgitation. JAYDEN on 03/01/2016 revealed inferior wall akinesis, moderate lateral wall hypokinesis, moderate to severe anterior wall hypokinesis. EF 40-45%. The posterior mitral valve leaflet was normal in thickness but was restricted in mobility due to the inferior inferolateral WMA's with resultant moderately severe ischemic mitral regurgitation. Hypertension Dyslipidemia Generalized anxiety disorder Family History: Positive for CAD in his mother and father. Younger brother without known CAD. Social History: Quit smoking in March 2016 after smoking up to 2 ppd since he was quite young. No recent alcohol. Denies illegal drug use. . Six children. (Montez Quispe PA-C) Review Of Systems Complete review of systems is as stated above, negative, or noncontributory. (Montez Quispe PA-C) Allergies Coded Allergies: No Known Allergies (Verified , 06/16/16) Medications Reported Home Medications Medications Dose Route/Sig Max Daily Dose Days Date Category Dose Instructions Torsemide 20 Mg Tab 20 Mg PO DAILY 06/23/16 Reported Imdur Ext Rel (Isosorbide Mononitrate) 30 Mg Ertab 30 Mg PO QAM 06/23/16 Reported Nitrostat (Nitroglycerin) 0.4 Mg Tab 0.4 Mg UT UD PRN 08/16/[address] ONE TABLET UNDER THE TONGUE EVERY 5 MINUTES FOR UP TO 3 DOSES IF NEEDED FOR CHEST PAIN. Protonix (Pantoprazole Sodium) 40 Mg Tab 40 Mg PO DAILY 08/16/15 Reported Zestril (Lisinopril) 5 Mg Tab 5 Mg PO DAILY 08/16/15 Reported Plavix (Clopidogrel Bisulfate) 75 Mg Tab 75 Mg PO DAILY 08/16/15 Reported Coreg (Carvedilol) 12.5 Mg Tab 12.5 Mg PO BID 08/16/15 Reported Lipitor (Atorvastatin Calcium) 80 Mg Tab 80 Mg PO DAILY 08/16/15 Reported Aspirin Ec (Aspirin) 81 Mg Tab 81 Mg PO DAILY 08/16/15 Reported (Montez Quispe PA-C) Physical Exam Vital Signs (Last 8hrs): Last 8 Hrs Date Time Temp Pulse Resp B/P Pulse Ox O2 Delivery O2 Flow Rate FiO2 06/24/16 07:49 Room Air 06/24/16 07:37 37.2 97 16 108/70 93 Room Air 06/24/16 04:00 36.4 90 24 106/69 96 Room Air 06/24/16 04:00 Room Air General Appearance: Alert and Oriented x3. NAD. Head: Normocephalic Atraumatic. Eyes: PER, EOMI, conjunctiva and sclera clear Neck: Supple. No carotid bruits noted. Mildly elevated JVP. Respiratory: Decreased but clear to auscultation. Cardiovascular: Regular at 100 bpm. Grade III/ apical systolic murmur. Soft systolic murmur in the aortic outflow tract. Grade I/ diastolic murmur at the lower left sternal border. No rub. PMI is not displaced. Abdomen: Normal bowel sounds, soft nontender. no abdominal bruits. Extremities: No edema, no clubbing or cyanosis. Distal pulses 2/4 bilaterally. Neuro: No focal deficits. Psychiatric: Normal affect. (Montez Quispe PA-C) Data Last 24 Hours Test 06/23/16 14:55 06/23/16 15:03 06/23/16 21:00 06/24/16 03:00 White Blood Count 8.94 K/uL 8.14 K/uL Red Blood Count 4.77 M/uL 4.26 M/uL Hemoglobin 15.3 g/dL 13.6 g/dL Hematocrit 43.6 % 39.1 % Mean Corpuscular Volume 91.4 fL 91.8 fL Mean Corpuscular Hemoglobin 32.1 pg 31.9 pg Mean Corpuscular Hemoglobin Concent 35.1 g/dl 34.8 g/dl RDW Standard Deviation 44.1 fL 44.6 fL RDW Coefficient of Variation 13.5 % 13.7 % Platelet Count 295 K/uL 264 K/uL Mean Platelet Volume 10.9 fL 10.9 fL Prothrombin Time 11.0 SECONDS Prothromb Time International Ratio 1.0 Activated Partial Thromboplast Time 25.3 SECONDS Partial Thromboplastin Ratio 1.0 Sodium Level 142 mmol/L 143 mmol/L Potassium Level 3.5 mmol/L 4.0 mmol/L Chloride Level 111 mmol/L 112 mmol/L Carbon Dioxide Level 24 mmol/L 24 mmol/L Anion Gap 7.0 mmol/L 7.0 mmol/L Blood Urea Nitrogen 8 mg/dl 10 mg/dl Creatinine 1.10 mg/dl 0.97 mg/dl Est Creatinine Clear Calc Drug Dose 95.1 ml/min 107.8 ml/min Estimated GFR () 94.8 110.4 Estimated GFR (Non- 81.8 95.2 BUN/Creatinine Ratio 7.5 10.0 Random Glucose 122 mg/dl 104 mg/dl Calcium Level 8.4 mg/dl 8.1 mg/dl Magnesium Level 2.0 mg/dl 2.0 mg/dl Total Bilirubin 0.3 mg/dl Aspartate Amino Transf (AST/SGOT) 11 U/L Alanine Aminotransferase (ALT/SGPT) 18 U/L Alkaline Phosphatase 65 U/L Total Creatine Kinase 137 U/L 112 U/L 93 U/L Creatine Kinase MB 1.2 ng/ml 1.3 ng/ml 1.3 ng/ml Creatine Kinase MB Ratio 0.9 1.2 1.4 Total Protein 6.9 gm/dl Albumin 3.9 gm/dl Globulin 3.0 gm/dl Albumin/Globulin Ratio 1.3 Lipase 237 U/L Bedside Troponin I 0.030 ng/ml Troponin I 0.028 ng/ml 0.029 ng/ml Estimated Average Glucose 143 mg/dl Hemoglobin A1c 6.6 % Triglycerides Level 325 mg/dl Cholesterol Level 178 mg/dl HDL Cholesterol 22 mg/dl LDL Cholesterol, Calculated 91 mg/dl VLDL Cholesterol, Calculated 65 mg/dl Cholesterol/HDL Ratio 8.1 [id number]-JUN-2016 14:35:48 Sinus tachycardia at 114 bpm. Right bundle branch block. QTc: 504 ms. [id number]-[id number]-2016 06:59:52 Normal sinus rhythm at 100 bpm. Right bundle branch block. QTc: 485 ms. Telemetry: Sinus/sinus tachycardia ~100 bpm. (Montez Quispe PA-C) Assessment & Plan Complex 41 year old male with aggressive premature coronary artery disease and ischemic mitral regurgitation, presenting to [facility] on June 23, 2016 with complaints of constant chest discomfort x 3 days, mild acute decompensated systolic heart failure. EKGs are without acute changes. Cardiac enzymes are negative times three. CXR negative. RECOMMENDATIONS/PLAN: Agree with titration of Carvedilol, utilization of nitro paste Add low dose oral digoxin. Low dose IV furosemide this afternoon Exercise stress echocardiogram when compensated. Probable future CABG and MVR discussed. ? Truly a new/acute DVT. As per Hospitalist. Further recommendations pending the above, evaluation by Dr. Ruiz, and his ongoing hospitalization. (Montez Quispe PA-C) Cardiology attending: Pt seen and examined, agree with findings and assessment as per Montez Lu. Echo shows no new wall motion abnormality with possible slight worsening of mitral regurgitation. Volume overloaded. Will proceed with diuresis. Will need cardiothoracic surgery eval sooner rather than later. Will also need stress testing once compensated. (Colton Ruiz, D.O.)
--- NOTE | 2016-06-24 14:26 | ECHOCARDIOGRAM REPORT ---
*NOTICE TO RECEIVING [employer] This information is strictly Confidential and protected under [place] law. [place] law prohibits you from making any further disclosure of this information unless further disclosure is expressly permitted by the written consent of the person to whom it pertains or is authorized by law. A general authorization for the release of medical or other information is not sufficient for this purpose. Hospital accepts no responsibility if the information is made available to any other person, INCLUDING THE PATIENT. Interpretation Summary * Name: JACK CRUZ Study Date: 06/24/2016 07:30 AM BP: 106/69 mmHg * Patient Location: [facility]\S\N282\S\1 HR: 100 * : 1975 (M/d/yyyy) Gender: Male Height: 72 in * Age: 41 yrs Ethnicity: [place] Weight: 205 lb * Ordering Physician: Jessica Earl * Performed By: Maribel Rivera RDCS * * Reason For Study: Chest pain * BSA: 2.2 m2 * -- Conclusions -- * Compared to previous study of 02/28/16: mitral regurgitation has worsened. * Mildly dilated LV chamber size with mild concentric LVH. * Moderately reduced LV systolic function, EF 40-45%. * There is inferior wall akinesis. * There is a large sized septal, inferior, posterior, and lateral wall motion abnormality with hypokinesis to akinesis of the segments. * Grade II diastolic dysfunction. * Mild aortic regurgitation. * The mitral vavle leaflets are mildly thickened with restricted mobiltity of the posterior mitral valve leaflet. * Severe mitral regurgitation is present. * Moderate left atrial enlargement. Procedure Details * A complete two-dimensional transthoracic echocardiogram was performed (2D, M-mode, Doppler and color flow Doppler). Left Ventricle * The left ventricle is normal in size. * There is normal left ventricular wall thickness. * Ejection Fraction = 35-40%. * There is inferior wall akinesis. There is a large sized septal, inferior, posterior, and lateral wall motion abnormality with hypokinesis to akinesis of the segments. Right Ventricle * The right ventricular cavity size is normal (basal dimension <4.2 cm in right ventricular apical 4-chamber view). * The right ventricular systolic function is normal as assessed by tricuspid annular plane systolic excursion (TAPSE) (normal >1.5 cm). Atria * The left atrium is moderately dilated. * Right atrial size is normal. * No ASD detected; PFO is not assessed. Mitral Valve * The mitral vavle leaflets are mildly thickened with restricted mobiltity of the posterior mitral valve leaflet. * There is no mitral valve stenosis. * There is severe mitral regurgitation. Tricuspid Valve * The tricuspid valve is normal in structure and function. Aortic Valve * The aortic valve is trileaflet. * No hemodynamically significant valvular aortic stenosis. * Mild aortic regurgitation. Pulmonic Valve * The pulmonary valve is not well seen, but the Doppler examination is normal without significant regurgitation or stenosis. Great Vessels * The aortic root and proximal ascending aorta are normal sized. Pericardium/Pleural * There is no pericardial effusion. Left Ventricular Diastolic Function * Diastolic dysfunction, Grade II (pseudonormalization pattern). MMode 2D Measurements and Calculations IVSd 1.2 cm LVIDd 6.1 cm LVIDs 5.0 cm LVPWd 1.4 cm IVS/LVPW 0.90 FS 17.2 % EDV(Teich) 186.2 ml ESV(Teich) 120.5 ml EF(Teich) 35.3 % EDV(cubed) 225.8 ml ESV(cubed) 128.1 ml EF(cubed) 43.3 % LV mass(C)d 359.9 grams LV mass(C)dI 167.2 grams/m\S\2 CO(Teich) 6.4 l/min CI(Teich) 3.0 l/min/m\S\2 SV(Teich) 65.7 ml SI(Teich) 30.5 ml/m\S\2 CO(cubed) 9.6 l/min CI(cubed) 4.4 l/min/m\S\2 SV(cubed) 97.7 ml SI(cubed) 45.4 ml/m\S\2 Ao root diam 2.5 cm Ao root area 5.1 cm\S\2 ACS 1.9 cm LA dimension 3.9 cm asc Aorta Diam 3.2 cm LA/Ao 1.5 LVOT diam 2.0 cm LVOT area 3.3 cm\S\2 LVAd ap4 49.9 cm\S\2 LVLd ap4 10.3 cm EDV(MOD-sp4) 199.0 ml LVAs ap4 36.3 cm\S\2 LVLs ap4 8.9 cm ESV(MOD-sp4) 124.0 ml EF(MOD-sp4) 37.7 % LVAd ap2 46.7 cm\S\2 LVLd ap2 9.1 cm EDV(MOD-sp2) 198.0 ml LVAs ap2 36.2 cm\S\2 LVLs ap2 8.7 cm ESV(MOD-sp2) 128.0 ml EF(MOD-sp2) 35.4 % CO(MOD-sp4) 7.4 l/min CI(MOD-sp4) 3.4 l/min/m\S\2 SV(MOD-sp4) 75.0 ml SI(MOD-sp4) 34.8 ml/m\S\2 CO(MOD-sp2) 6.9 l/min CI(MOD-sp2) 3.2 l/min/m\S\2 SV(MOD-sp2) 70.0 ml SI(MOD-sp2) 32.5 ml/m\S\2 Doppler Measurements and Calculations MV E max román 123.9 cm/sec MV A max román 44.4 cm/sec MV E/A 2.8 MV V2 max 132.3 cm/sec MV max PG 7.0 mmHg MV V2 mean 77.4 cm/sec MV mean PG 2.8 mmHg MV V2 VTI 40.1 cm MV dec time 0.26 sec Ao V2 max 164.9 cm/sec Ao max PG 10.9 mmHg Ao max PG (full) 7.9 mmHg YOVANNY(V,A) 1.7 cm\S\2 YOVANNY(V,D) 1.7 cm\S\2 AI max román 441.9 cm/sec AI max PG 78.1 mmHg AI dec slope 499.7 cm/sec\S\2 AI P1/2t 259.0 msec LV V1 max PG 3.0 mmHg LV V1 max 85.9 cm/sec MR max román 584.2 cm/sec MR max PG 136.5 mmHg MR mean román 443.0 cm/sec MR mean PG 89.2 mmHg MR VTI 172.0 cm MR PISA 3.3 cm\S\2 MR PISA radius 0.73 cm PA V2 max 110.8 cm/sec PA max PG 4.9 mmHg PA acc slope 285.3 cm/sec\S\2 PA acc time 0.20 sec PI max román 103.2 cm/sec PI max PG 4.3 mmHg PI dec slope 227.2 cm/sec\S\2 PI P1/2t 133.0 msec TR max román 314.2 cm/sec PA pr(Accel) -11.32 mmHg
[2016-06-24] MEDS ORDERED: POTASSIUM CHLORIDE 10 MEQ TABCR PO ONE (16:00)
[2016-06-24] MEDS ORDERED: FUROSEMIDE INJ 20 MG in SYRINGE 0 ML IV SCH (16:00)
--- NOTE | 2016-06-24 16:19 | Progress Note ---
Internal Med Progress Note Date of Service: Jun 24, 2016. Provider Documentation: SUBJECTIVE: Patient is sitting in his bed in no apparent distress. Still c/o left sided chest pain on deep breath. No radiation. Denies any diaphoresis/sweating. Feels warmer. No BM for the last 3 days OBJECTIVE: Vital Signs-as noted below Examination: General Appearance: Pleasant WD/WN 41 year old male lying in bed in no distress Head: normocephalic, atraumatic Eyes: PERRL, EOMI, sclerae normal ENT: hearing grossly normal, pharynx normal Neck: supple, no JVD, Midline trachea. Respiratory/Chest: chest non-tender, lungs clear, normal breath sounds, no respiratory distress, no accessory muscle use Cardiovascular: no edema, no gallop, no JVD, normal peripheral pulses, Tachycardia. + systolic murmur (+3) Abdomen/GI: normal bowel sounds, soft, Mild epigastric pain on deep palpation Back: normal inspection, no muscle spasm Extremities/Musculoskeletal: normal capillary refill, no pedal edema, Left calf tenderness. Neurologic/Psych: alert, oriented x 3,no motor or sensory deficits noted on gross exam. Skin: normal color, warm/dry, no rash Lymphatic: no adenopathy Lab data as noted below. ASSESSMENT & PLAN: ULTRASOUND BILATERAL LOWER EXTREMITY VENOUS IMPRESSION: 1. There is no sonographic evidence of deep venous thrombosis identified in the right lower extremity. 2. There is deep venous thrombosis identified in the left calf within one of the peroneal veins. 3. No above knee deep venous thrombosis is seen in the left lower extremity. CHEST PAIN R/O ACS - known CAD. Clinically & hemodynamically stable. Chest pain seems to be due to Pneumonia and not cardiac. -Serial Troponin is normal. -Risk factors: Known CAD h/o stenting to RCA x2, and LAD x 2, HTN, HLD, tobacco abuse - recent cessation, family history -Fasting lipid panel, A1c in AM shows HDL 39 & LDl 110. -Echo shows no wall motion defect. -Continue ACEI, ASA, Plavix, Statin -Increase Carvedilol to 25mg BID as patient is still tachycardic -Holding Imdur while on nitropaste -Cardiology consult placed for further recommendations - follows with Dr. Rodriguez as outpatient -CTA Chest is negative for PE. Left Sided Pneumonia: Normal WBC. -Continue Rocephin & Azithromycin Acute DVT Left Calf: Reviewed Venous Duplex study. -Started Eliquis 5 mg BID Epigastric Pain: Likely gastritis/GERD -Continue PPI. -Lipase is normal. History Systolic CHF: Stable.Appears euvolemic -last echo with EF of 40-45%, aortic regurgitation -Continue Torsemide -Reviewed TTE findings Hypertension: Stable -continue BB, ACEI Hyperlipidemia: Reviewed Lipid profile. -Continue Lipitor 80 mg daily. DVT Prophylaxis: Eliquis Code Status: FULL CODE Disposition: Discharge once is clinically stable. Vital Signs: Date Time Temp Pulse Resp B/P Pulse Ox O2 Delivery O2 Flow Rate FiO2 06/24/16 15:08 36.8 86 16 100/63 94 Room Air 06/24/16 12:00 Room Air 06/24/16 11:25 36.5 92 18 102/65 93 Room Air 06/24/16 10:18 96 103/71 06/24/16 07:49 Room Air 06/24/16 07:37 37.2 97 16 108/70 93 Room Air 06/24/16 04:00 36.4 90 24 106/69 96 Room Air 06/24/16 04:00 Room Air 06/24/16 00:00 Room Air 06/23/16 23:20 36.2 99 20 127/85 95 Room Air 06/23/16 20:00 Room Air 06/23/16 19:59 36.3 100 18 126/76 96 Room Air 06/23/16 17:42 36.3 100 20 153/97 96 Room Air 06/23/16 16:55 108 16 144/95 97 06/23/16 16:51 108 16 144/95 97 Room Air Lab Results: Results Past 24 Hours Test 06/23/16 21:00 06/24/16 03:00 Range/Units Total Creatine Kinase 112 93 39-308 U/L Creatine Kinase MB 1.3 1.3 0.5-3.6 ng/ml Creatine Kinase MB Ratio 1.2 1.4 0-3.0 Troponin I 0.028 0.029 0-0.045 ng/ml White Blood Count 8.14 4.8-10.8 K/uL Red Blood Count 4.26 4.7-6.1 M/uL Hemoglobin 13.6 14.0-18.0 g/dL Hematocrit 39.1 42-52 % Mean Corpuscular Volume 91.8 80-100 fL Mean Corpuscular Hemoglobin 31.9 25-34 pg Mean Corpuscular Hemoglobin Concent 34.8 32-36 g/dl RDW Standard Deviation 44.6 36.4-46.3 fL RDW Coefficient of Variation 13.7 11.5-14.5 % Platelet Count 264 130-400 K/uL Mean Platelet Volume 10.9 7.4-10.4 fL Sodium Level 143 136-145 mmol/L Potassium Level 4.0 3.5-5.1 mmol/L Chloride Level 112 98-107 mmol/L Carbon Dioxide Level 24 21-32 mmol/L Anion Gap 7.0 3-11 mmol/L Blood Urea Nitrogen 10 7-18 mg/dl Creatinine 0.97 0.60-1.40 mg/dl Est Creatinine Clear Calc Drug Dose 107.8 ml/min Estimated GFR () 110.4 Estimated GFR (Non- 95.2 BUN/Creatinine Ratio 10.0 10-20 Random Glucose 104 70-99 mg/dl Estimated Average Glucose 143 mg/dl Hemoglobin A1c 6.6 4.5-5.6 % Calcium Level 8.1 8.5-10.1 mg/dl Magnesium Level 2.0 1.8-2.4 mg/dl Triglycerides Level 325 0-150 mg/dl Cholesterol Level 178 0-200 mg/dl HDL Cholesterol 22 mg/dl LDL Cholesterol, Calculated 91 mg/dl VLDL Cholesterol, Calculated 65 mg/dl Cholesterol/HDL Ratio 8.1
[2016-06-24] MEDS: DIGOXIN 0.125 MG TAB PO SCH (16:26)
--- NOTE | 2016-06-24 16:37 | Progress Note ---
Internal Med Progress Note Date of Service: Jun 24, 2016. Provider Documentation: SUBJECTIVE: Patient is sitting in his bed in no apparent distress. Still c/o lintermittent left calf pain. No chest pain/pressure or SOB today. Denies any diaphoresis/sweating. OBJECTIVE: Vital Signs-as noted below Examination: General Appearance: Pleasant WD/WN 41 year old male lying in bed in no distress Head: normocephalic, atraumatic Eyes: PERRL, EOMI, sclerae normal ENT: hearing grossly normal, pharynx normal Neck: supple, no JVD, Midline trachea. Respiratory/Chest: chest non-tender, lungs clear, normal breath sounds, no respiratory distress, no accessory muscle use Cardiovascular: no edema, no gallop, no JVD, normal peripheral pulses, Tachycardia. + systolic murmur (+3) Abdomen/GI: normal bowel sounds, soft, Mild epigastric pain on deep palpation Back: normal inspection, no muscle spasm Extremities/Musculoskeletal: normal capillary refill, no pedal edema, Left calf tenderness. Neurologic/Psych: alert, oriented x 3,no motor or sensory deficits noted on gross exam. Skin: normal color, warm/dry, no rash Lymphatic: no adenopathy Lab data as noted below. ASSESSMENT & PLAN: Echocardiogram Compared to previous study of 02/28/16: mitral regurgitation has worsened. Mildly dilated LV chamber size with mild concentric LVH. Moderately reduced LV systolic function, EF 40-45%. There is inferior wall akinesis. There is a large sized septal, inferior, posterior, and lateral wall motion abnormality with hypokinesis to akinesis of the segments. Grade II diastolic dysfunction. Mild aortic regurgitation. The mitral vavle leaflets are mildly thickened with restricted mobiltity of the posterior mitral valve leaflet. Severe mitral regurgitation is present. Moderate left atrial enlargement. ULTRASOUND BILATERAL LOWER EXTREMITY VENOUS IMPRESSION: 1. There is no sonographic evidence of deep venous thrombosis identified in the right lower extremity. 2. There is deep venous thrombosis identified in the left calf within one of the peroneal veins. 3. No above knee deep venous thrombosis is seen in the left lower extremity. CHEST PAIN R/O ACS - known CAD. Clinically & hemodynamically stable. -Serial Troponin is normal. -Risk factors: Known CAD h/o stenting to RCA x2, and LAD x 2, HTN, HLD, tobacco abuse - recent cessation, family history -Fasting lipid panel, A1c in AM shows HDL 65 & LDL 91.. -Echo findings reviewed. -Continue ACEI, ASA, Plavix, Statin -Increase Carvedilol to 25mg BID as patient is still tachycardic -Holding Imdur while on nitropaste -Cardiology consult reviewed. Thanks for input. -CTA Chest is negative for PE. Acute DVT Left Calf: Reviewed Venous Duplex study. -Started Eliquis 5 mg BID. D/C d Lovenox. Epigastric Pain: Likely gastritis/GERD -Continue PPI. -Lipase is normal. History Systolic CHF: Stable.Appears euvolemic -last echo with EF of 40-45%, aortic regurgitation -Continue Torsemide -Reviewed TTE findings Hypertension: Stable -continue BB, ACEI Hyperlipidemia: Reviewed Lipid profile. -Continue Lipitor 80 mg daily. DVT Prophylaxis: Eliquis Code Status: FULL CODE Disposition: Discharge once is clinically stable. Vital Signs: Date Time Temp Pulse Resp B/P Pulse Ox O2 Delivery O2 Flow Rate FiO2 06/24/16 16:26 101 06/24/16 15:08 36.8 86 16 100/63 94 Room Air 06/24/16 12:00 Room Air 06/24/16 11:25 36.5 92 18 102/65 93 Room Air 06/24/16 10:18 96 103/71 06/24/16 07:49 Room Air 06/24/16 07:37 37.2 97 16 108/70 93 Room Air 06/24/16 04:00 36.4 90 24 106/69 96 Room Air 06/24/16 04:00 Room Air 06/24/16 00:00 Room Air 06/23/16 23:20 36.2 99 20 127/85 95 Room Air 06/23/16 20:00 Room Air 06/23/16 19:59 36.3 100 18 126/76 96 Room Air 06/23/16 17:42 36.3 100 20 153/97 96 Room Air 06/23/16 16:55 108 16 144/95 97 06/23/16 16:51 108 16 144/95 97 Room Air Lab Results: Results Past 24 Hours Test 06/23/16 21:00 06/24/16 03:00 Range/Units Total Creatine Kinase 112 93 39-308 U/L Creatine Kinase MB 1.3 1.3 0.5-3.6 ng/ml Creatine Kinase MB Ratio 1.2 1.4 0-3.0 Troponin I 0.028 0.029 0-0.045 ng/ml White Blood Count 8.14 4.8-10.8 K/uL Red Blood Count 4.26 4.7-6.1 M/uL Hemoglobin 13.6 14.0-18.0 g/dL Hematocrit 39.1 42-52 % Mean Corpuscular Volume 91.8 80-100 fL Mean Corpuscular Hemoglobin 31.9 25-34 pg Mean Corpuscular Hemoglobin Concent 34.8 32-36 g/dl RDW Standard Deviation 44.6 36.4-46.3 fL RDW Coefficient of Variation 13.7 11.5-14.5 % Platelet Count 264 130-400 K/uL Mean Platelet Volume 10.9 7.4-10.4 fL Sodium Level 143 136-145 mmol/L Potassium Level 4.0 3.5-5.1 mmol/L Chloride Level 112 98-107 mmol/L Carbon Dioxide Level 24 21-32 mmol/L Anion Gap 7.0 3-11 mmol/L Blood Urea Nitrogen 10 7-18 mg/dl Creatinine 0.97 0.60-1.40 mg/dl Est Creatinine Clear Calc Drug Dose 107.8 ml/min Estimated GFR () 110.4 Estimated GFR (Non- 95.2 BUN/Creatinine Ratio 10.0 10-20 Random Glucose 104 70-99 mg/dl Estimated Average Glucose 143 mg/dl Hemoglobin A1c 6.6 4.5-5.6 % Calcium Level 8.1 8.5-10.1 mg/dl Magnesium Level 2.0 1.8-2.4 mg/dl Triglycerides Level 325 0-150 mg/dl Cholesterol Level 178 0-200 mg/dl HDL Cholesterol 22 mg/dl LDL Cholesterol, Calculated 91 mg/dl VLDL Cholesterol, Calculated 65 mg/dl Cholesterol/HDL Ratio 8.1
[2016-06-24] MEDS: APIXABAN 2.5 MG TAB PO SCH (20:55)
[2016-06-24] MEDS ORDERED: ZOLPIDEM TARTRATE 5 MG TAB PO PRN (21:15)
[2016-06-25] VITALS (7 sets, daily range): BP systolic 88–112; BP diastolic 53–76; PULSE 82–84; TEMP 36.3–36.9; O2SAT 93–97
[2016-06-25] MEDS: MoRPHine SULFATE 2 MG/ML CARP IV PRN (00:13)
[2016-06-25] MEDS: NITROGLYCERIN OINT 2% 1GM PACKET EXT SCH ×2 (04:00→10:00)
[2016-06-25 07:23] LABS: BASO % 0.8 %; BASO ABS # 0.07 K/uL (0-0.2); COMPLETE YES; EOS % 4.8 %; HEMATOCRIT 41.9 % (42-52); IG% 0.2 %; LYMPH % 24.5 %; LYMPH ABS # 2.06 K/uL (1.2-3.4); MEAN CELL VOLUME 92.3 fL (80-100); MEAN CORPUSCULAR HEMOGLOBIN 31.9 pg (25-34); MEAN CORPUSCULAR HGB CONC 34.6 g/dl (32-36); MEAN PLATELET VOLUME 11.2 fL (7.4-10.4); MONO % 9.4 %; NEUT % 60.3 %; PLATELET COUNT 249 K/uL (130-400); RED BLOOD COUNT 4.54 M/uL (4.7-6.1); WHITE BLOOD COUNT 8.42 K/uL (4.8-10.8)
[2016-06-25] MEDS: CARVEDILOL 25 MG TAB PO SCH (07:53)
[2016-06-25] MEDS: LISINOPRIL 5 MG TAB PO SCH (07:53)
[2016-06-25] MEDS: TORSEMIDE 20 MG TAB PO SCH (07:54)
[2016-06-25] MEDS: CLOPIDOGREL BISULFATE 75 MG TAB PO SCH (07:56)
[2016-06-25] MEDS: ATORVASTATIN 40 MG TAB PO SCH (07:56)
[2016-06-25] MEDS: APIXABAN 2.5 MG TAB PO SCH (07:56)
[2016-06-25] MEDS: ASPIRIN 81 MG ECTAB PO SCH (07:56)
[2016-06-25] MEDS: PANTOprazole SOD 40 MG TAB PO SCH (07:56)
[2016-06-25 08:00] LABS: BUN/CREATININE RATIO 12.6 (10-20); CALCIUM 8.6 mg/dl (8.5-10.1); POTASSIUM 3.9 mmol/L (3.5-5.1)
[2016-06-25] MEDS: ACETAMINOPHEN 325 MG TAB PO PRN ×2 (08:01→16:09)
[2016-06-25 08:03] LABS: ALB/GLOB RATIO 1.2 (0.9-2)
[2016-06-25] MEDS ORDERED: ALUMINUM/MAGNESIUM/SIMETH (MAALOX MAX) 30 ML UDC PO PRN (08:45)
[2016-06-25] MEDS ORDERED: ATORVASTATIN 40 MG TAB PO SCH (09:00)
[2016-06-25] MEDS ORDERED: ALUMINUM/MAGNESIUM/SIMETH (MAALOX MAX) 30 ML UDC PO ONE (09:00)
--- NOTE | 2016-06-25 14:43 | Progress Note ---
Internal Med Progress Note Date of Service: Jun 25, 2016. Provider Documentation: SUBJECTIVE: Patient is sitting in his bed in no apparent distress. Still c/o intermittent left calf pain. No chest pain/pressure or SOB today. he has been walking in the hallway many times since morning. Denies any diaphoresis/sweating. Intermittent epigastric pain. No other new change or complaint. OBJECTIVE: Vital Signs-as noted below Examination: General Appearance: Pleasant WD/WN 41 year old male lying in bed in no distress Head: normocephalic, atraumatic Eyes: PERRL, EOMI, sclerae normal ENT: hearing grossly normal, pharynx normal Neck: supple, no JVD, Midline trachea. Respiratory/Chest: chest non-tender, lungs clear, normal breath sounds, no respiratory distress, no accessory muscle use Cardiovascular: no edema, no gallop, no JVD, normal peripheral pulses, Tachycardia. + systolic murmur (+3) Abdomen/GI: normal bowel sounds, soft, Mild epigastric pain on deep palpation Back: normal inspection, no muscle spasm Extremities/Musculoskeletal: normal capillary refill, no pedal edema, Left calf tenderness. Neurologic/Psych: alert, oriented x 3,no motor or sensory deficits noted on gross exam. Skin: normal color, warm/dry, no rash Lymphatic: no adenopathy Lab data as noted below. ASSESSMENT & PLAN: Echocardiogram Compared to previous study of 02/28/16: mitral regurgitation has worsened. Mildly dilated LV chamber size with mild concentric LVH. Moderately reduced LV systolic function, EF 40-45%. There is inferior wall akinesis. There is a large sized septal, inferior, posterior, and lateral wall motion abnormality with hypokinesis to akinesis of the segments. Grade II diastolic dysfunction. Mild aortic regurgitation. The mitral vavle leaflets are mildly thickened with restricted mobiltity of the posterior mitral valve leaflet. Severe mitral regurgitation is present. Moderate left atrial enlargement. ULTRASOUND BILATERAL LOWER EXTREMITY VENOUS IMPRESSION: 1. There is no sonographic evidence of deep venous thrombosis identified in the right lower extremity. 2. There is deep venous thrombosis identified in the left calf within one of the peroneal veins. 3. No above knee deep venous thrombosis is seen in the left lower extremity. CHEST PAIN R/O ACS - known CAD. Clinically & hemodynamically stable. -Serial Troponin is normal. -Risk factors: Known CAD h/o stenting to RCA x2, and LAD x 2, HTN, HLD, tobacco abuse - recent cessation, family history -Fasting lipid panel shows HDL 65 & LDL 91.. -Echo findings reviewed. -Continue ACEI, ASA, Plavix, Statin -Increase Carvedilol to 25mg BID as patient is still tachycardic -Holding Imdur while on nitropaste -Cardiology consult reviewed. Thanks for input. -His MR is worsening and cardiology will be addressing it as outpatient. -CTA Chest is negative for PE. Acute DVT Left Calf: Reviewed Venous Duplex study. -Started Eliquis 5 mg BID. D/C d Lovenox. Epigastric Pain: Likely gastritis/GERD -Continue PPI. -Lipase is normal. History Systolic CHF: Stable.Appears euvolemic -last echo with EF of 40-45%, aortic regurgitation -Continue Torsemide -Reviewed TTE findings Hypertension: Stable -continue BB, ACEI Hyperlipidemia: Reviewed Lipid profile. -Continue Lipitor 80 mg daily. DVT Prophylaxis: Eliquis Code Status: FULL CODE Disposition: Discharge home later today. Held a detailed discussion with him that he needs to be omn anti-coagulant for hos DVT in Left lower leg as well discussed with Dr. Paiz. Patient had been very rude to me while trying explain the discharge instructions to him and was just looking at the wall. He stated that " I have your name & will make sure to iva you to make money for my family & kids." I stayed quiet and left his room. Needs to follow up with PCP within one week after discharge. Follow up with Cardiology in 1-2 weeks. Vital Signs: Date Time Temp Pulse Resp B/P Pulse Ox O2 Delivery O2 Flow Rate FiO2 06/25/16 12:30 Room Air 06/25/16 11:04 36.4 83 18 109/75 96 Room Air 06/25/16 07:52 98/64 06/25/16 07:45 Room Air 06/25/16 07:21 36.9 82 18 88/53 94 06/25/16 04:11 36.9 84 18 99/62 93 Room Air 06/25/16 04:00 Room Air 06/25/16 00:01 100/61 06/25/16 00:00 Room Air 06/24/16 23:44 37.4 93 18 96/59 91 Room Air 06/24/16 20:00 Room Air 06/24/16 19:46 36.5 92 18 101/63 93 Room Air 06/24/16 16:26 101 06/24/16 16:00 Room Air 06/24/16 15:08 36.8 86 16 100/63 94 Room Air Lab Results: Results Past 24 Hours Test 06/25/16 07:07 06/25/16 07:31 Range/Units White Blood Count 8.42 4.8-10.8 K/uL Red Blood Count 4.54 4.7-6.1 M/uL Hemoglobin 14.5 14.0-18.0 g/dL Hematocrit 41.9 42-52 % Mean Corpuscular Volume 92.3 80-100 fL Mean Corpuscular Hemoglobin 31.9 25-34 pg Mean Corpuscular Hemoglobin Concent 34.6 32-36 g/dl Platelet Count 249 130-400 K/uL Mean Platelet Volume 11.2 7.4-10.4 fL Neutrophils (%) (Auto) 60.3 % Lymphocytes (%) (Auto) 24.5 % Monocytes (%) (Auto) 9.4 % Eosinophils (%) (Auto) 4.8 % Basophils (%) (Auto) 0.8 % Neutrophils # (Auto) 5.08 1.4-6.5 K/uL Lymphocytes # (Auto) 2.06 1.2-3.4 K/uL Monocytes # (Auto) 0.79 0.11-0.59 K/uL Eosinophils # (Auto) 0.40 0-0.5 K/uL Basophils # (Auto) 0.07 0-0.2 K/uL RDW Standard Deviation 45.8 36.4-46.3 fL RDW Coefficient of Variation 13.6 11.5-14.5 % Immature Granulocyte % (Auto) 0.2 % Immature Granulocyte # (Auto) 0.02 0.00-0.02 K/uL Sodium Level 140 136-145 mmol/L Potassium Level 3.9 3.5-5.1 mmol/L Chloride Level 106 98-107 mmol/L Carbon Dioxide Level 26 21-32 mmol/L Anion Gap 8.0 3-11 mmol/L Blood Urea Nitrogen 13 7-18 mg/dl Creatinine 1.00 0.60-1.40 mg/dl Est Creatinine Clear Calc Drug Dose 104.6 ml/min Estimated GFR () 106.4 Estimated GFR (Non- 91.8 BUN/Creatinine Ratio 12.6 10-20 Random Glucose 107 70-99 mg/dl Calcium Level 8.6 8.5-10.1 mg/dl Total Bilirubin 0.5 0.2-1 mg/dl Aspartate Amino Transf (AST/SGOT) 11 15-37 U/L Alanine Aminotransferase (ALT/SGPT) 18 12-78 U/L Alkaline Phosphatase 57 45-117 U/L Total Protein 6.4 6.4-8.2 gm/dl Albumin 3.5 3.4-5.0 gm/dl Globulin 2.9 2.5-4.0 gm/dl Albumin/Globulin Ratio 1.2 0.9-2 Bedside Glucose 108 70-99 mg/dl
--- NOTE | 2016-06-25 14:43 | CARDIOLOGY PROGRESS NOTE ---
DATE: 06/25/2016 DATE: 06/25/2016. FOLLOW-UP VISIT SUBJECTIVE: This is a 41-year-old male patient with a history of aggressive premature coronary artery disease with significant diffuse disease noted on a cardiac catheterization in February 2016. He has an ischemic cardiomyopathy with severe hypokinesis of the inferior myocardium with an estimated left ventricular ejection fraction of around 35%. He also has severe mitral regurgitation. He was last seen in our clinic by Dr. Rodriguez in March at which time he was complaining of continued shortness of breath. Dr. Rodriguez recommended an exercise stress echocardiogram which was never completed. The patient was admitted here with atypical chest discomfort. His cardiac markers are negative. He is very angry about his situation. He is ambulating in the hallways without discomfort and during my interview with him he was texting. He is angry because he does not feel that anything is being done for his discomfort. At this point, he would like to be discharged home to outpatient followup. The only finding of note is US imaging suggests a Peroneal Vein thrombus? With a negative CT of the chest, I doubt his chest pain is related. ALLERGIES: No known medical allergies. OBJECTIVE: GENERAL: He is alert and oriented in no acute distress. VITAL SIGNS: Blood pressure is 110/75, pulse is regular at 83. He is afebrile. HEAD, EYES, EARS, NOSE, AND THROAT: He is normocephalic. Pupils are equal and reactive to light. Extraocular muscles are intact bilaterally. NECK: The neck veins are flat. Carotids have good upstrokes bilaterally without bruits. Thyroid is nonpalpable. RESPIRATORY: Breath sounds equal bilaterally and clear to auscultation. CARDIOVASCULAR: Heart has a regular rhythm. Normal S1, S2. No S3, S4. No cardiac rubs or murmurs. GASTROINTESTINAL: Abdomen is soft, nontender without organomegaly. EXTREMITIES: Free of edema, digit clubbing, or cyanosis. NEUROLOGIC: Grossly intact. SKIN: Warm to touch. LYMPH NODES: Negative to palpation. LABORATORY DATA: Per the history of chief complaint. IMPRESSION: 1. Severe premature arteriosclerotic vascular disease. 2. Multiple coronary interventions. 3. Ischemic cardiomyopathy with severe left ventricular dysfunction. 4. Severe mitral regurgitation. 5. Thrombus noted in left Peroneal vein, below common femoral. RECOMMENDATIONS: As outlined above, the patient is very frustrated and angry. He does not wish to stay for any additional care. His cardiac markers are negative and I believe that he has chronic angina. After his cardiac catheterization in February it was decided that he should be treated medically. I agree with that treatment at this time. He wants to return home and follow up with Dr. Rodriguez as an outpatient I think that would be appropriate. In regard to the distal venous thrombosis, except for aspirin, nothing further needs to be done except a follow-up US in a few days. Unfortunately, I'm concerned that he will not be compliant with follow-up for the US. So I do not think it is unreasonable to A/C him but provide a limited RX until he has follow-up with us. LYUDMILA
[2016-06-25] MEDS ORDERED: CRG25 PO (14:45)
[2016-06-25] MEDS ORDERED: ELQ25 PO ×2 (14:45)
[2016-06-25] MEDS ORDERED: LNX125 PO (14:45)
--- NOTE | 2016-06-25 14:47 | Discharge Instructions ---
Discharge Instructions Admission Reason for Admission: Chest Pain Discharge Discharge Diagnosis / Problem: (1) DVT (deep venous thrombosis) VTE Date & Time Date of VTE Diagnosis: Jun 23, 2016 Time of VTE Diagnosis: 15:00 Discharge Goals Goal(s): Decrease discomfort, Improve function, Increase independence, Improve disease control, Improve nutritional status, Learn about illness, Diagnostic testing, Therapeutic intervention Activity Recommendations Activity Limitations: resume your previous activity (As Tolerated.) Lifting Limitations: no more than 10 pounds Exercise/Sports Limitations: as tolerated May Resume Sexual Activity: when tolerated Shower/Bathe: no limitations Driving or Machine Use: no limitations . Instructions / Follow-Up Instructions / Follow-Up Take your medications as directed. Needs to follow up with PCP within one week after discharge. Follow up with Cardiology in 1-2 weeks. Medication Instructions: Your condition is typically treated with an anticoagulant. Anticoagulants will thin your blood to help prevent new clots. * You should take her medication exactly as directed. * Never skip a dose. * Never take a double dose. If you miss a dose, take it as soon as you remember. Call your Primary Care doctor if you experience any of the following: * Swelling or Pain in your leg * Sudden, continuous pain deep in a muscle * Pain that worsens when you are active or when you stand still for a long time * Chest Pain * Sudden Shortness of Breath * Rapid or pounding heart beat * Fainting * Dizziness * Cough with blood or bloody sputum * Sweating more than normal * Bruises * Heavy or uncontrolled bleeding * Blood in your urine, stool or vomit * Black or tarry stools Caring for Your Self at Home: * Avoid sitting, standing or lying down for long periods without moving your legs and feet * When traveling by car, stop to get out and move around at least once every 3 hours * On long airplane, train or bus rides, get up and move around when possible * If you can't get up, wiggle your toes and tighten your calves to keep your blood moving Follow Up: It is important for you to keep your follow up appointments with your medical provider. Current Hospital Diet Patient's current hospital diet: AHA Diet (Heart Healthy), Diabetes Type 2 Diet Discharge Diet Recommended Diet: AHA Diet (Heart Healthy), Diabetes Type 2 Diet Fluid Restriction: 2000 ml (8 cups) Pending Studies Studies pending at discharge: no Laboratory Results Hemoglobin A1c Test 06/24/16 03:00 Range/Units Estimated Average Glucose 143 mg/dl Hemoglobin A1c 6.6 H 4.5-5.6 % Lipid Panel Test 06/24/16 03:00 Range/Units Triglycerides Level 325 H 0-150 mg/dl Cholesterol Level 178 0-200 mg/dl HDL Cholesterol 22 mg/dl Cholesterol/HDL Ratio 8.1 LDL Cholesterol, Calculated 91 mg/dl Medical Emergencies . Who to Call and When: Medical Emergencies: If at any time you feel your situation is an emergency, please call 911 immediately. . Non-Emergent Contact Non-Emergency issues call your: Primary Care Provider . . "Provider Documentation" section prepared by Manuel Oakes. VTE Core Measure Inpt VTE Proph given/why not?: Enoxaparin (Lovenox)SQ, Other Anticoagulation ( Eliquis)
--- NOTE | 2016-06-25 14:51 | Discharge Summary ---
Discharge Summary Admission Date: Jun 23, 2016 at 16:08 Discharge Date: Jun 25, 2016 Discharge Disposition: Home Principal Diagnosis: Chest pain Left Sided DVT Lower Extremity Secondary Diagnoses/Problems: History Systolic CHF Mitral Regurgitation Hypertension Dyslipidemia Procedures: Echocardiogram CTA Chest ---> Negative Vaccinations: NONE Consultations: Cardiology Pending Studies/Follow-Up: Follow up with cardiology as outpatient in 1-2 weeks. Medication Reconciliation New Medications: Apixaban (Eliquis) 2.5 Mg Tab 1 TAB PO BID, #60 1 Refill Apixaban (Eliquis) 2.5 Mg Tab 5 MG PO BID, #12 TAB Carvedilol (Carvedilol) 25 Mg Tab 25 MG PO BID, #60 TAB Digoxin (Digoxin) 0.125 Mg Tab 0.125 MG PO DAILY@16, #30 TAB Continued Medications: Aspirin (Aspirin Ec) 81 Mg Tab 81 MG PO DAILY Atorvastatin (Lipitor) 80 Mg Tab 80 MG PO DAILY, TAB Clopidogrel (Plavix) 75 Mg Tab 75 MG PO DAILY, TAB Isosorbide Mononitrate Ext Rel (Imdur Ext Rel) 30 Mg Ertab 30 MG PO QAM, TAB Lisinopril (Zestril) 5 Mg Tab 5 MG PO DAILY, TAB Nitroglycerin (Nitrostat) 0.4 Mg Tab 0.4 MG UT UD PRN for Chest Pain, BTL PLACE ONE TABLET UNDER THE TONGUE EVERY 5 MINUTES FOR UP TO 3 DOSES IF NEEDED FOR CHEST PAIN. Pantoprazole (Protonix) 40 Mg Tab 40 MG PO DAILY, TAB Torsemide (Torsemide) 20 Mg Tab 20 MG PO DAILY Discontinued Medications: Carvedilol (Coreg) 12.5 Mg Tab 12.5 MG PO BID, TAB Admission Information HPI (per Admitting provider): Patient seen and examined. 41 year old male with PMHx of CAD s/p Stenting, HTN, HLD, Systolic CHF, and other problems listed below presents to the ED complaining of chest pain x 3 days. Patient reports that he usually gets chest tightness when exerting himself outside in the cold. Over the last three days he has started to have chest pain at rest. He states this happens mostly at night. He reports that pain starts substernal radiates to the left shoulder and back. He describes the pain as a tightness/pressure with a sharp quality. He rates it as a 10/10. He reports associated SOB, diaphoresis. He states he chronically feels palpitations. He states he has been taking nitro SL which alleviates the symptoms. He states last night the pain was worse and he had to take 2 nitro SL to alleviate the pain. He reports last night he had PND. He denies fevers, chills, URI symptoms, nausea, vomiting, diarrhea, dysuria, edema. He reports left calf pain. He reports he has been compliant with his medications. He states he quit smoking in March after several years of 1pack per day. He reports he was to have a stress test in March but was not able to make the appointment. Patient has had 4 cardiac stents placed in the past last one in 2014. He had a LHC in February 2016 which showed patent stents, severe CAD and medical management was recommended at that time. He follows with Dr. Rodriguez. In the ED patient is mildly tachycardic otherwise VS are stable, Diana are negative x 1, EKG is nonischemic. He is given nitropaste and ASA and pain is improving. He will be observed for further workup and treatment. Physical Exam (per Admitting): General Appearance: + pertinent finding Head: normocephalic, atraumatic Eyes: PERRL, EOMI, sclerae normal ENT: hearing grossly normal, pharynx normal Neck: supple, no JVD Respiratory/Chest: chest non-tender, lungs clear, normal breath sounds, no respiratory distress, no accessory muscle use Cardiovascular: no edema, no gallop, no JVD, normal peripheral pulses, + tachycardia, + systolic murmur Abdomen/GI: normal bowel sounds, soft, + tenderness Back: normal inspection, no muscle spasm Extremities/Musculoskelatal: normal capillary refill, no pedal edema, + calf tenderness Neurologic/Psych: alert, oriented x 3, + pertinent finding Skin: normal color, warm/dry, no rash Lymphatic: no adenopathy Hospital Course Echocardiogram Compared to previous study of 02/28/16: mitral regurgitation has worsened. Mildly dilated LV chamber size with mild concentric LVH. Moderately reduced LV systolic function, EF 40-45%. There is inferior wall akinesis. There is a large sized septal, inferior, posterior, and lateral wall motion abnormality with hypokinesis to akinesis of the segments. Grade II diastolic dysfunction. Mild aortic regurgitation. The mitral vavle leaflets are mildly thickened with restricted mobiltity of the posterior mitral valve leaflet. Severe mitral regurgitation is present. Moderate left atrial enlargement. ULTRASOUND BILATERAL LOWER EXTREMITY VENOUS IMPRESSION: 1. There is no sonographic evidence of deep venous thrombosis identified in the right lower extremity. 2. There is deep venous thrombosis identified in the left calf within one of the peroneal veins. 3. No above knee deep venous thrombosis is seen in the left lower extremity. CHEST PAIN R/O ACS - known CAD. Clinically & hemodynamically stable. No acute cardiac event. -Serial Troponin is normal. -Risk factors: Known CAD h/o stenting to RCA x2, and LAD x 2, HTN, HLD, tobacco abuse - recent cessation, family history -Fasting lipid panel shows HDL 65 & LDL 91.. -Echo findings reviewed. -Continue ACEI, ASA, Plavix, Statin -Increase Carvedilol to 25mg BID as patient is still tachycardic -Holding Imdur while on nitropaste -Cardiology consult reviewed. Thanks for input. -His MR is worsening and cardiology will be addressing it as outpatient. -CTA Chest is negative for PE. Acute DVT Left Calf: Reviewed Venous Duplex study. -Started Eliquis 5 mg BID. D/C d Lovenox. Epigastric Pain: Likely gastritis/GERD -Continue PPI. -Lipase is normal. History Systolic CHF: Stable.Appears euvolemic -last echo with EF of 40-45%, aortic regurgitation -Continue Torsemide -Reviewed TTE findings Hypertension: Stable -continue BB, ACEI Hyperlipidemia: Reviewed Lipid profile. -Continue Lipitor 80 mg daily. DVT Prophylaxis: Eliquis Code Status: FULL CODE Disposition: Discharge home later today. Held a detailed discussion with him that he needs to be omn anti-coagulant for hos DVT in Left lower leg as well discussed with Dr. Paiz. Patient had been very rude to me while trying explain the discharge instructions to him and was just looking at the wall. He stated that " I have your name & will make sure to iva you to make money for my family & kids." I stayed quiet and left his room. Needs to follow up with PCP within one week after discharge. Follow up with Cardiology in 1-2 weeks. Total time spent on discharge = 40 minutes. This includes examination of the patient, discharge planning, medication reconciliation, and communication with other providers. Discharge Instructions Discharge Goals Goal(s): Decrease discomfort, Improve function, Increase independence, Improve disease control, Improve nutritional status, Learn about illness, Diagnostic testing, Therapeutic intervention Activity Recommendations Activity Limitations: resume your previous activity (As Tolerated.) Lifting Limitations: no more than 10 pounds Exercise/Sports Limitations: as tolerated May Resume Sexual Activity: when tolerated Shower/Bathe: no limitations Driving or Machine Use: no limitations . Instructions / Follow-Up Instructions / Follow-Up Take your medications as directed. Needs to follow up with PCP within one week after discharge. Follow up with Cardiology in 1-2 weeks. Additional Copies To Valentine Brown D.O. Lombardo, Mark, PA-C
[2016-06-25] MEDS: DIGOXIN 0.125 MG TAB PO SCH (16:09)
[2016-06-25] MEDS ORDERED: PANTOprazole SOD 40 MG TAB PO SCH (21:00)
== END 2016-06-25 17:00 | disposition home or self-care (01) ==
LOC: ENRESERVDT → ENRESERVTM → C.EDB 14:34 → C.MED 16:08
PROVIDERS: ADMIT Hospitalist; ATTEND Emergency Medicine
DX: R07.9 Chest pain, unspecified (principal); I82.402 Acute embolism and thrombosis of unspecified deep veins of left lower extremity; I25.5 Ischemic cardiomyopathy; I10 Essential (primary) hypertension; I25.10 Atherosclerotic heart disease of native coronary artery without angina pectoris; I50.21 Acute systolic (congestive) heart failure; E11.9 Type 2 diabetes mellitus without complications; E78.5 Hyperlipidemia, unspecified; Z83.3 Family history of diabetes mellitus; Z83.79 Family history of other diseases of the digestive system; Z82.49 Family history of ischemic heart disease and other diseases of the circulatory system; Z84.1 Family history of disorders of kidney and ureter; Z83.6 Family history of other diseases of the respiratory system; Z87.891 Personal history of nicotine dependence; Z79.82 Long term (current) use of aspirin; Z79.899 Other long term (current) drug therapy; Z79.02 Long term (current) use of antithrombotics/antiplatelets; Z95.5 Presence of coronary angioplasty implant and graft; I25.2 Old myocardial infarction